=== PATIENT | female | born 1995 | race Caucasian/White ===

== ENCOUNTER 2024-01-13 10:13 | Emergency (ER) | payer MEDICAID ==
[~2024-01-13] VITALS: Ht 160 cm; Wt 111.1 kg
[2024-01-13 10:36] VITALS: BP 119/76; PULSE 84; RESP 20; TEMP 97.3; O2SAT 100
[2024-01-13 12:14] LABS: BASOPHILS % (AUTO) 0.5 % (0.0-2.0); EOSINOPHILS # (AUTO) 0.2 K/uL (0-0.4); EOSINOPHILS % (AUTO) 3.7 % (0.0-4.0); HEMATOCRIT 34.6 % (36-48); HEMOGLOBIN 11.4 g/dL (12.0-16.0); LYMPHOCYTES # (AUTO) 1.9 K/uL (2.5-16.5); LYMPHOCYTES % (AUTO) 31.7 % (20.5-51.1); MEAN CORPUSCULAR HEMOGLOBIN 29 pg (27-31); MEAN CORPUSCULAR HGB CONC 33 g/dL (33-37); MEAN CORPUSCULAR VOLUME 88.8 fL (80-94); MONOCYTES # (AUTO) 0.4 K/uL (0.8-1.0); MONOCYTES % (AUTO) 6.1 % (1.7-9.3); NEUTROPHILS # (AUTO) 3.4 K/uL (1.8-7.7); PLATELET COUNT (AUTO) 278 K/uL (140-450); RED CELL DISTRIBUTION WIDTH 14.3 % (11.6-13.7); WHITE BLOOD COUNT (AUTO) 5.9 K/uL (4.8-10.8)
[2024-01-13] MEDS ORDERED: MEDR10TA PO (12:50)
[2024-01-13 13:19] VITALS: BP 122/81; PULSE 71; RESP 18; TEMP 97.8; O2SAT 99
== END 2024-01-13 13:19 | disposition home or self-care (01) ==
LOC: MED 10:13
DX: N93.9 Abnormal uterine and vaginal bleeding, unspecified (principal); D64.9 Anemia, unspecified; Z90.49 Acquired absence of other specified parts of digestive tract; Z79.899 Other long term (current) drug therapy
CPT/HCPCS: 36415; 76830; 81025; 84443; 85025; 99284; Q0092